=== PATIENT | female | born 1970 | race Caucasian/White ===

== ENCOUNTER 2021-10-04 15:29 | Outpatient (CLI) | payer BC ==
[2021-10-04 16:32] LABS: SARS-CoV-2 NAA Rapid Test DETECTED (NotDetected)
== END 2021-10-04 15:30 | disposition home or self-care (01) ==
LOC: MADLAB 15:29
PROVIDERS: ATTEND Family Medicine
DX: U07.1 COVID-19 (principal)
CPT/HCPCS: U0002

== ENCOUNTER 2022-01-10 04:11 | Outpatient (CLI) | payer BC ==
[2022-01-10 06:22] LABS: ALT (SGPT) 24 U/L (8-55); AST (SGOT) 19 U/L (5-34); Albumin 3.8 g/dL (3.5-5.0); Alkaline Phosphatase 70 U/L (40-110); Anion Gap 15 mmol/L (10-20); BUN (Urea Nitrogen) 15 mg/dL (7.0-18.7); Bilirubin, Total 0.4 mg/dL (0.2-1.2); Calc. Creatinine Clearance 0 mL/min (70-130); Calcium 9.2 mg/dL (7.8-10.44); Carbon Dioxide 24 mmol/L (22-29); Cardiac Risk 2.6 (Less than 4.5); Chloride 104 mmol/L (98-107); Cholesterol 215 mg/dl (< 200 Desired); Estimated GFR 102; Globulin 2.9 g/dL (2.4-3.5); Glucose 81 mg/dL (70-105); HDL Cholesterol 82 mg/dL (>60 Neg Risk); LDL Cholesterol, Calculated 121 mg/dL; Potassium 4.2 mmol/L (3.5-5.1); Protein, Total 6.7 g/dL (6.0-8.3); Sodium 139 mmol/L (136-145); Triglycerides 58 mg/dL (Less than 150)
== END 2022-01-10 04:12 | disposition home or self-care (01) ==
LOC: MADLAB 04:11
PROVIDERS: ATTEND Student in an Organized Health Care Education/Training Program
DX: E78.5 Hyperlipidemia, unspecified (principal); E55.9 Vitamin D deficiency, unspecified
CPT/HCPCS: 80053; 80061; 82306